=== PATIENT | female | born 1975 | race Caucasian/White ===

== ENCOUNTER 2022-06-18 11:07 | Emergency (ER) | payer BC, OTHER ==
[~2022-06-18] VITALS: Ht 154.9 cm; Wt 61.2 kg
--- NOTE | 2022-06-18 12:12 | NUR ---
PT SEEN AND EVALUATED BY DR FRIEND. URINE SPECIMEN SENT TO LAB
[2022-06-18 12:19] LABS: *BILIRUBIN,URIN NEGATIVE (NEGATIVE); *BLOOD, URINE 3+ (NEGATIVE); *CLARITY,URINE SLIGHTLY CLOUDY (CLEAR); *COLOR,URINE YELLOW (YELLOW); *KETONES,URINE NEGATIVE (NEGATIVE); *UROBILINOGEN,URINE 0.2 E.U./dl (NORMAL); LEUKOCYTE ESTERASE ,URINE 2+ (NEGATIVE); NITRITE, URINE NEGATIVE (NEGATIVE); UGLUCOSE NEGATIVE (NEGATIVE)
[2022-06-18 12:21] LABS: *URINE HCG, QUAL NEGATIVE (NEGATIVE)
[2022-06-18] MEDS ORDERED: PHEN-704 PO (12:25)
[2022-06-18] MEDS ORDERED: CEPH500C2 PO (12:25)
--- NOTE | 2022-06-18 12:50 | NUR ---
LAB RESULTS REVIEWED BY DR FRIEND WITH PATIENT. PRESCRIPTIONS AND DISCHARGE INSTRUCTIONS RENDERED.
[2022-06-18 12:51] VITALS: BP 124/77
[2022-06-18 13:02] LABS: BACTERIA,URINE FEW /HPF (NONE SEEN); RBC,URINE TNTC /HPF (0-3); WBC,URINE 50-80 /HPF (0-3)
[2022-06-18 13:03] LABS: SQUAMOUS EPITHELIAL CELL,UR MODERATE /HPF (NONE SEEN)
== END 2022-06-18 12:51 | disposition home or self-care (01) ==
LOC: ER 11:07
DX: N39.0 Urinary tract infection, site not specified (principal)
CPT/HCPCS: 84703; 87077; 87086; A4663